=== PATIENT | female | born 1960 | race Caucasian/White ===

== ENCOUNTER 2017-01-16 18:39 | Emergency (ER) | payer BC ==
[~2017-01-16] VITALS: Ht 172.7 cm; Wt 109.0 kg
[~2017-01-16 18:39] MED LIST: CIPR-255 PO; FLNIN NAE; MONT1TAB3 PO; PERP2TAB6 PO; SUMA100T16 PO
[2017-01-16 18:41] VITALS: TEMP 36.8; Ht 172.7 cm; Wt 109.0 kg
[2017-01-16] MEDS ORDERED: KETOROLAC TROMETHAMINE 30 MG/ML VIAL IV STA (18:56)
[2017-01-16] MEDS ORDERED: proair PO (19:05)
[2017-01-16] MEDS ORDERED: OPTIRAY 320 IV PRN (19:15)
[2017-01-16 19:27] LABS: BASO % 0.3 %; BASO ABS # 0.05 K/uL (0-0.2); COMPLETE YES; HEMATOCRIT 40.8 % (37-47); IG% 0.2 %; LYMPH ABS # 2.46 K/uL (1.2-3.4); MEAN CELL VOLUME 89.7 fL (80-100); MEAN CORPUSCULAR HEMOGLOBIN 30.1 pg (25-34); MEAN CORPUSCULAR HGB CONC 33.6 g/dl (32-36); MEAN PLATELET VOLUME 9.6 fL (7.4-10.4); MONO % 5.5 %; PLATELET COUNT 347 K/uL (130-400); RED BLOOD COUNT 4.55 M/uL (4.2-5.4)
[2017-01-16 19:48] LABS: BUN/CREATININE RATIO 24.1 (10-20); CALCIUM 8.8 mg/dl (8.5-10.1); CREATININE 0.82 mg/dl (0.60-1.20); POTASSIUM 3.6 mmol/L (3.5-5.1)
[2017-01-16 19:52] LABS: URINE APPEARANCE CLEAR (CLEAR); URINE BILIRUBIN NEG (NEG); URINE COLOR YELLOW; URINE EPITHELIAL CELL AUTO >30 /lpf (0-5); URINE NITRITE NEG (NEG); URINE PH 8.5 (4.5-7.5); URINE SPECIFIC GRAVITY 1.021 (1.000-1.030); UROBILINOGEN NEG (NEG); ZZUR CULT IF INDIC CLEAN CATCH NO
[2017-01-16 19:55] LABS: MANUAL MICROSCOPIC REQUIRED? NO; REVIEW REQ? NO
--- NOTE | 2017-01-16 20:16 | DIAGNOSTIC IMAGING REPORT ---
CT SCAN OF THE ABDOMEN AND PELVIS WITH IV CONTRAST CLINICAL HISTORY: Suprapubic abdominal pain. COMPARISON STUDY: Abdominal CT dated 04/22/2014. TECHNIQUE: Following the IV administration of 116 cc of Optiray 320, CT scan of the abdomen and pelvis is performed from the lung bases to the proximal femora. Images are reviewed in the axial, sagittal, and coronal planes. IV contrast was administered without complication. The examination is mildly degraded by large body habitus, and by streak artifact from the body wall abutting the CT gantry. Automated dose control exposure was utilized. FINDINGS: Lung bases: The heart is normal in size and without pericardial effusion. Coronary artery calcifications are noted. The lung bases are clear noting dependent atelectasis. Liver: The contrast-enhanced liver is normal in size, contour, and attenuation. There is no intrahepatic biliary ductal dilatation. The hepatic veins and portal veins are patent. Scattered hepatic cysts measure up to 2.8 cm. Gallbladder: Contracted and grossly unremarkable. Spleen: Normal in size and attenuation. Pancreas: Unremarkable. Adrenal glands: Unremarkable. Kidneys: The contrast enhanced kidneys are normal in size and without hydronephrosis. The kidneys enhance symmetrically. A retroaortic left renal vein is incidentally noted. Abdominal vasculature: The abdominal aorta is normal in course and caliber. Stomach and bowel: There is a moderate to large hiatal hernia with approximately half of the stomach located in the thoracic cavity. The duodenum is normal in configuration. The small bowel and colon are normal in course and caliber. There is mild to moderate diverticulosis of left colon without CT evidence of acute diverticulitis. There is moderate fecal retention in the right colon. The appendix is well-visualized and normal. Peritoneum: There is no intraperitoneal free air or abdominal ascites. There is a fat-containing umbilical hernia. Lymphadenopathy: None. Pelvic viscera: The bladder, uterus, and adnexa are normal as visualized. There is a small fat-containing left inguinal hernia. Skeletal structures: No lytic or blastic lesions are seen. Sclerotic change is noted at the pubic symphysis. IMPRESSION: 1. There are no acute infectious or inflammatory findings in the abdomen or pelvis. 2. Moderate to large hiatal hernia. 3. Mild to moderate diverticulosis of the left colon without CT evidence of acute diverticulitis. Electronically signed by: Sky Bean M.D. 01/16/2017 8:14 PM Dictated Date/Time: 01/16/2017 8:07 PM
--- NOTE | 2017-01-16 20:38 | DIAGNOSTIC IMAGING REPORT ---
CT SCAN OF LUMBAR SPINE WITHOUT IV CONTRAST CLINICAL HISTORY: Low back pain. COMPARISON STUDY: Abdominal CT performed concurrently on 01/16/2017. TECHNIQUE: CT scan of lumbar spine is performed from the lower thoracic spine to the sacrum. Images reviewed in the axial, sagittal, and coronal planes. IV contrast was not administered specifically for this examination. There is IV contrast present from the concurrently performed abdominal CT. CT DOSE: 1454.26 mGy.cm. FINDINGS: The skeletal structures are well mineralized. Vertebral body height and alignment are maintained throughout the lumbar spine. No fracture is seen. The transverse and spinous processes are intact. There is no spondylolysis. No lytic or blastic lesions are seen. Tiny anterior osteophytes are seen in the lower lumbar region. The disc spaces are preserved. There is no evidence of large disc herniation. The visualized sacrum and bony pelvis are intact as imaged. The paraspinous soft tissues are within normal limits. Colonic diverticulosis is partially visualized. No retroperitoneal lymphadenopathy is seen. IMPRESSION: No acute bony abnormality is seen involving the lumbosacral spine. Dictated: 01/16/2017 8:19 PM Transcribed: 01/16/2017 8:38 PM Tito Electronically signed by: Sky Bean M.D. 01/16/2017 8:44 PM Dictated Date/Time: 01/16/2017 8:19 PM
[2017-01-16] MEDS ORDERED: IBUP-1427 PO (21:05)
--- NOTE | 2017-01-16 21:06 | EMERGENCY ROOM VISIT NOTE ---
History First contact with patient: 18:45 Chief Complaint: BACK PAIN Stated Complaint: PAIN IN LEGS SOME IN BACK History of Present Illness The patient is a 56 year old female who presents to the Emergency Room with complaints of low back pain. The patient states that she had an appointment with her chiropractor this morning to have "an adjustment." She states that afterwards, she went shopping and felt fine, but later developed pain in her low back. She reports the pain radiates into her lower abdomen in both of her legs. She rates this discomfort a 10/10. The pain is worse with walking. She has not taken any medication for the pain. She denies any nausea, vomiting or urinary symptoms. She denies any incontinence, numbness, tingling, weakness or saddle anesthesias. She denies any history of back problems. She denies any fevers/chills. Review of Systems A complete 10-point Review of Systems was discussed with the patient, with pertinent positives and negatives listed in the History of Present Illness. All remaining Review of Systems questions can be considered negative unless otherwise specified. Past Medical/Surgical History Medical Problems: (1) Asthma Social History Smoking Status: Never Smoker Marital Status: Occupation Status: employed Current/Historical Medications Scheduled Fluticasone Propionate (Flonase Nasal [place] *), 2 SPRAY ANNA DAILY Ibuprofen Tab (Motrin), 1 TAB PO TID Montelukast Sodium (Singulair), 10 MG PO DAILY Perphenazine-Amitriptyline (Perphenazine/Amitriptylin), 1 TAB PO QPM Sumatriptan Succinate (Imitrex), 100 MG PO PRN Scheduled PRN [proair], 1 PUFF PO DAILY PRN for prn Allergies Coded Allergies: Hydromorphone (Verified Allergy, Intermediate, Nausea, vomiting, 01/16/17) Sulfa Drugs (Unverified Allergy, Unknown, HIVES, 01/16/17) Physical Exam Vital Signs Date Time Temp Pulse Resp B/P Pulse Ox O2 Delivery O2 Flow Rate FiO2 01/16/17 21:33 76 18 102/56 98 Room Air 01/16/17 20:25 79 104/56 98 Room Air 01/16/17 18:41 36.8 93 20 132/79 97 Room Air Physical Exam VITALS: Vitals are noted on the nurse's note and reviewed by myself. Vital signs stable. GENERAL: This is a 56-year-old female, in no acute distress, nondiaphoretic, well-developed well-nourished. SKIN: Capillary reflex less than 2 seconds. HEENT: Normocephalic. PERRLA. EOMI. Nares patent. Mucous membranes moist. Neck is supple without nuchal rigidity. HEART: Regular rate and rhythm without murmurs gallops or rubs. LUNGS: Clear to auscultation bilaterally without wheezes, rales or rhonchi. ABDOMEN: Positive bowel sounds x 4. Soft, with mild tenderness of the left lower quadrant. No guarding or rebound tenderness. MUSCULOSKELETAL: Vague tenderness over the lumbar region without tenderness over the lumbar spinous processes. NEURO: Patient was alert and oriented to person place and time. Normal sensation to light and sharp touch. Deep tendon reflexes 2+ throughout. No focal neurological deficits. Medical Decision & Procedures ER Provider Diagnostic Interpretation: CT SCAN OF THE ABDOMEN AND PELVIS WITH IV CONTRAST IMPRESSION: 1. There are no acute infectious or inflammatory findings in the abdomen or pelvis. 2. Moderate to large hiatal hernia. 3. Mild to moderate diverticulosis of the left colon without CT evidence of acute diverticulitis. CT SCAN OF LUMBAR SPINE WITHOUT IV CONTRAST IMPRESSION: No acute bony abnormality is seen involving the lumbosacral spine. Laboratory Results 01/16/17 19:18 Red Blood Count 4.55, Mean Corpuscular Volume 89.7, Mean Corpuscular Hemoglobin 30.1, Mean Corpuscular Hemoglobin Concent 33.6, Mean Platelet Volume 9.6, Neutrophils (%) (Auto) 73.0, Lymphocytes (%) (Auto) 17.0, Monocytes (%) (Auto) 5.5, Eosinophils (%) (Auto) 4.0, Basophils (%) (Auto) 0.3, Neutrophils # (Auto) 10.58, Lymphocytes # (Auto) 2.46, Monocytes # (Auto) 0.80, Eosinophils # (Auto) 0.58, Basophils # (Auto) 0.05 01/16/17 19:18 Test 01/16/17 19:18 01/16/17 19:27 White Blood Count 14.50 K/uL (4.8-10.8) Red Blood Count 4.55 M/uL (4.2-5.4) Hemoglobin 13.7 g/dL (12.0-16.0) Hematocrit 40.8 % (37-47) Mean Corpuscular Volume 89.7 fL (80-100) Mean Corpuscular Hemoglobin 30.1 pg (25-34) Mean Corpuscular Hemoglobin Concent 33.6 g/dl (32-36) Platelet Count 347 K/uL (130-400) Mean Platelet Volume 9.6 fL (7.4-10.4) Neutrophils (%) (Auto) 73.0 % Lymphocytes (%) (Auto) 17.0 % Monocytes (%) (Auto) 5.5 % Eosinophils (%) (Auto) 4.0 % Basophils (%) (Auto) 0.3 % Neutrophils # (Auto) 10.58 K/uL (1.4-6.5) Lymphocytes # (Auto) 2.46 K/uL (1.2-3.4) Monocytes # (Auto) 0.80 K/uL (0.11-0.59) Eosinophils # (Auto) 0.58 K/uL (0-0.5) Basophils # (Auto) 0.05 K/uL (0-0.2) RDW Standard Deviation 45.3 fL (36.4-46.3) RDW Coefficient of Variation 13.8 % (11.5-14.5) Immature Granulocyte % (Auto) 0.2 % Immature Granulocyte # (Auto) 0.03 K/uL (0.00-0.02) Anion Gap 11.0 mmol/L (3-11) Est Creatinine Clear Calc Drug Dose 99.1 ml/min Estimated GFR () 92.7 Estimated GFR (Non- 80.0 BUN/Creatinine Ratio 24.1 (10-20) Calcium Level 8.8 mg/dl (8.5-10.1) Total Bilirubin 0.3 mg/dl (0.2-1) Aspartate Amino Transf (AST/SGOT) 15 U/L (15-37) Alanine Aminotransferase (ALT/SGPT) 23 U/L (12-78) Alkaline Phosphatase 116 U/L (45-117) Total Protein 7.4 gm/dl (6.4-8.2) Albumin 3.7 gm/dl (3.4-5.0) Globulin 3.7 gm/dl (2.5-4.0) Albumin/Globulin Ratio 1.0 (0.9-2) Urine Color YELLOW Urine Appearance CLEAR (CLEAR) Urine pH 8.5 (4.5-7.5) Urine Specific [place] 1.021 (1.000-1.030) Urine Protein NEG (NEG) Urine Glucose (UA) NEG (NEG) Urine Ketones NEG (NEG) Urine Occult Blood 1+ (NEG) Urine Nitrite NEG (NEG) Urine Bilirubin NEG (NEG) Urine Urobilinogen NEG (NEG) Urine Leukocyte Esterase TRACE (NEG) Urine WBC (Auto) 1-5 /hpf (0-5) Urine RBC (Auto) 10-30 /hpf (0-4) Urine Hyaline Casts (Auto) 0 /lpf (0-5) Urine Epithelial Cells (Auto) >30 /lpf (0-5) Urine Bacteria (Auto) NEG (NEG) Medications Administered Medications (Trade) Dose Ordered Sig/Ruthie Route Start Time Stop Time Status Last Admin Dose Admin Ketorolac Tromethamine (Toradol Inj) 30 mg NOW STAT IV 01/16/17 18:56 01/16/17 19:09 DC 01/16/17 19:25 30 MG Medical Decision Differential diagnosis includes epidural abscess, lumbar disc disease, malignancy, musculoskeletal strain, diverticulitis, renal calculus, colitis, gastroenteritis, among others. The patient was evaluated as above. Labs were drawn and IV access was obtained. Imaging studies were performed and read by radiology as above. The patient was medicated with 30 g Toradol IV. The patient was reassessed multiple times during their stay in the emergency department and remained in stable condition. The patient is a 56-year-old female who presents today complaining of low back pain. The patient does report some radiation into the abdomen has mild tenderness in the left lower abdomen. Labs revealed a mild leukocytosis of unclear significance. Urinalysis was not suggestive of infection. CT of the lumbar spine was unremarkable. CT of the abdomen and pelvis was unremarkable. The patient was instructed to follow-up with her primary care provider. She did feel better after IV Toradol and will be treated with ibuprofen. She will return for worsening or new/concerning symptoms. Based on the patient's presentation, lab results, and imaging studies, I feel the patient is stable for outpatient treatment. Discharge instructions were reviewed with the patient. The patient verbalized understanding of my assessment and treatment plan and was discharged home in good condition. Impression Primary Impression: Low back pain Departure Information Dispostion Home / Self-Care Condition GOOD Prescriptions Ibuprofen Tab (MOTRIN) 600 Mg Tab 1 TAB PO TID for 10 Days, #30 TAB Prov: Iliana Herbert PA-C 01/16/17 Referrals Alesha Sterling M.D. (PCP) Patient Instructions My [facility] Additional Instructions You have been treated in the Emergency Department for Back Pain. Ibuprofen as prescribed. For pain control, you can use the following [id number] medicines (if >12 yo): - Regular strength (325mg/tab) Tylenol (acetaminophen) 2 tabs every 4-6 hours as needed. Do not exceed 12 tablets in a 24 hour period. Avoid taking more than 4 grams (4000 mg) of Tylenol per day. This includes any other sources of acetaminophen you may take on a regular basis. If this is an acute injury, ice can be applied to the area of pain for the first 3 days to help decrease pain and inflammation. After the first 3 days, a heating pad can be used over the area for continued soothing relief. You should schedule a follow-up appointment in 2-3 days with your Primary Care Provider for further evaluation and treatment of your back pain. Return to the Emergency Department if your current symptoms worsen despite treatment course outlined above, or if you develop any of the following symptoms : intractable pain despite aforementioned treatment course, loss of control of your bowel or bladder, numbness or tingling in your groin, or development of a fever. Problem Qualifiers Primary Impression: Low back pain Chronicity: acute Back pain laterality: unspecified Sciatica presence: without sciatica Qualified Codes: M54.5 - Low back pain
[2017-01-16 21:33] VITALS: BP 102/56; PULSE 76; O2SAT 98
== END 2017-01-16 21:34 | disposition home or self-care (01) ==
LOC: C.EDB 18:40
DX: M54.5 Low back pain (principal); J45.909 Unspecified asthma, uncomplicated; Z79.899 Other long term (current) drug therapy

== ENCOUNTER 2017-04-23 15:27 | Emergency (ER) | payer BC ==
[~2017-04-23] VITALS: Ht 172.7 cm; Wt 105.4 kg
[~2017-04-23 15:27] MED LIST changes: -CIPR-255 PO; +proair PO
[2017-04-23 15:34] VITALS: Ht 172.7 cm; Wt 105.4 kg
[2017-04-23] MEDS ORDERED: ACETAMINOPHEN 325 MG TAB PO STA (15:42)
[2017-04-23] MEDS ORDERED: SODIUM CHLORIDE 0.9% 1000ML 1,000 ML IV STA ×3 (15:46→18:01)
--- NOTE | 2017-04-23 15:46 | EMERGENCY ROOM VISIT NOTE ---
History First contact with patient: 15:42 Chief Complaint: REFERRED BY DOCTOR Stated Complaint: HEADACHE, SWEATING, COLD,PAIN, FEVER History of Present Illness The patient is a 56 year old female who presents to the Emergency Room with complaints of fever, chills, headache, diarrhea and nausea. Her symptoms started on Monday with diarrhea and fever initially and then shortly afterwards had headache. Headache is aching all over her head without light sensitivity, severity 10/10, progressively getting worse since Monday. She only had one episode of loose stool on Monday and no bowel movements since then, no melena or GI bleeding. Subjective fevers and chills, temp in ER 39.3 degrees celsius. Her headache has been getting progressively worse and is currently a 10/10 pain bilaterally all over her head. She has all over body aches. No known tick bites or exposure. She has decreased urinary frequency. She denies any cough, chest pain, shortness of breath, dysuria, change in urine smell, light sensitivity or neck pain. Review of Systems See HPI for pertinent positives & negatives. A total of 10 systems reviewed and were otherwise negative. Past Medical/Surgical History Medical Problems: (1) Asthma (2) Migraine Social History Smoking Status: Never Smoker Smokeless Tobacco Use: No Alcohol Use: occasionally (weekends) Drug Use: none Marital Status: Housing Status: lives with family Occupation Status: employed Current/Historical Medications Scheduled Ciprofloxacin (Ciprofloxacin HCl), 1 MG PO BID Fluticasone Prop/Salmeterol (Advair Diskus 250/50 60 Dose), 1 PUFF INH BID Fluticasone Propionate (Nasal) (Flonase Allergy Relief), 2 SPRAYS ANNA DAILY Montelukast Sodium (Singulair), 10 MG PO DAILY Perphenazine-Amitriptyline (Perphenazine/Amitriptylin), 1 TAB PO QPM Sumatriptan Succinate (Imitrex), 100 MG PO PRN Trazodone Hcl (Trazodone), 1 TAB PO QPM Scheduled PRN Albuterol Sulfate (Proair Respiclick), 1 PUFF INH DAILY PRN for SOB/Wheezing Ondansetron Hcl (Zofran), 4 MG PO QID PRN for Nausea Oxycodone Hcl (Oxycodone Hcl), 1 CAP PO QID PRN for Pain Allergies Coded Allergies: Hydromorphone (Verified Allergy, Intermediate, Nausea, vomiting, 01/16/17) Sulfa Drugs (Unverified Allergy, Unknown, HIVES, 01/16/17) Physical Exam Vital Signs Date Time Temp Pulse Resp B/P (MAP) Pulse Ox O2 Delivery O2 Flow Rate FiO2 04/23/17 20:13 81 04/23/17 19:17 89 17 120/69 94 Room Air 04/23/17 17:37 97 23 93 04/23/17 17:32 96 22 129/73 93 04/23/17 17:27 97 16 91 04/23/17 17:22 99 15 93 04/23/17 17:17 103 18 93 04/23/17 17:12 91 27 91 04/23/17 17:07 93 28 91 04/23/17 17:02 96 27 109/51 91 04/23/17 16:58 102 04/23/17 16:57 100 26 91 04/23/17 16:32 136/73 04/23/17 16:12 93 Room Air 04/23/17 15:34 39.3 120 20 109/64 97 Room Air Physical Exam VITAL SIGNS: were reviewed as above GENERAL: mild acute distress from pain, obese SKIN: Warm dry and pink, no rashes HEAD: Normocephalic and atraumatic EYES: Extraocular muscles intact, pupils equal and reactive to light OROPHARYNX: non erythematous, clear but dry NECK: Supple, no adenopathy or meningismus LUNGS: Clear to auscultation, no respiratory distress, no accessory muscle use HEART: Increased rate but regular rhythm, heart sounds 1+2, no murmurs ABDOMEN: Soft and nontender, bowel sounds normal BACK: B/l mild CVA tenderness (although has generalized tenderness everywhere). EXTREMITIES: Warm and well perfused, no calf tenderness/swelling, no pedal edema. NEUROLOGICALLY: Awake alert and oriented. Cranial nerves 2-12 intact. Cerebellar testing is within normal limits. There is no nystagmus. There is no facial droop. Speech is clear. Vision is grossly normal. Upper and lower limb motor and sensory examination normal. MUSCULOSKELETAL: Good muscle tone. No evidence of trauma. Medical Decision & Procedures ER Provider Diagnostic Interpretation: CHEST ONE VIEW PORTABLE CLINICAL HISTORY: SIRS SYSTEMIC INFLAMMATORY RESPONSE SYNDROME COMPARISON STUDY: 10/05/2016 FINDINGS: The cardiac and mediastinal contours are normal. There is no evidence of focal pulmonary consolidation. There is no evidence of failure. No pleural effusions are visualized.[ There is minor right infrahilar subsegmental atelectasis. IMPRESSION: No active disease in the chest. Electronically signed by: Prudencio Orozco M.D. 04/23/2017 4:03 PM Dictated Date/Time: 04/23/2017 4:02 PM Laboratory Results 04/23/17 15:50 Red Blood Count 5.36, Mean Corpuscular Volume 88.2, Mean Corpuscular Hemoglobin 30.4, Mean Corpuscular Hemoglobin Concent 34.5, Mean Platelet Volume 9.6, Neutrophils (%) (Auto) 93.1, Lymphocytes (%) (Auto) 4.1, Monocytes (%) (Auto) 2.6, Eosinophils (%) (Auto) 0.0, Basophils (%) (Auto) 0.1, Neutrophils # (Auto) 8.47, Lymphocytes # (Auto) 0.37, Monocytes # (Auto) 0.24, Eosinophils # (Auto) 0.00, Basophils # (Auto) 0.01 04/23/17 15:50 Test 04/23/17 15:50 04/23/17 15:58 04/23/17 16:10 White Blood Count 9.10 K/uL (4.8-10.8) Red Blood Count 5.36 M/uL (4.2-5.4) Hemoglobin 16.3 g/dL (12.0-16.0) Hematocrit 47.3 % (37-47) Mean Corpuscular Volume 88.2 fL (80-100) Mean Corpuscular Hemoglobin 30.4 pg (25-34) Mean Corpuscular Hemoglobin Concent 34.5 g/dl (32-36) Platelet Count 163 K/uL (130-400) Mean Platelet Volume 9.6 fL (7.4-10.4) Neutrophils (%) (Auto) 93.1 % Lymphocytes (%) (Auto) 4.1 % Monocytes (%) (Auto) 2.6 % Eosinophils (%) (Auto) 0.0 % Basophils (%) (Auto) 0.1 % Neutrophils # (Auto) 8.47 K/uL (1.4-6.5) Lymphocytes # (Auto) 0.37 K/uL (1.2-3.4) Monocytes # (Auto) 0.24 K/uL (0.11-0.59) Eosinophils # (Auto) 0.00 K/uL (0-0.5) Basophils # (Auto) 0.01 K/uL (0-0.2) RDW Standard Deviation 44.5 fL (36.4-46.3) RDW Coefficient of Variation 13.7 % (11.5-14.5) Immature Granulocyte % (Auto) 0.1 % Immature Granulocyte # (Auto) 0.01 K/uL (0.00-0.02) Prothrombin Time 11.2 SECONDS (9.0-12.0) Prothromb Time International Ratio 1.0 (0.9-1.1) Activated Partial Thromboplast Time 29.9 SECONDS (21.0-31.0) Partial Thromboplastin Ratio 1.2 Anion Gap 8.0 mmol/L (3-11) Est Creatinine Clear Calc Drug Dose 72.6 ml/min Estimated GFR () 65.0 Estimated GFR (Non- 56.1 BUN/Creatinine Ratio 18.1 (10-20) Calcium Level 9.1 mg/dl (8.5-10.1) Magnesium Level 2.5 mg/dl (1.8-2.4) Total Bilirubin 0.5 mg/dl (0.2-1) Aspartate Amino Transf (AST/SGOT) 39 U/L (15-37) Alanine Aminotransferase (ALT/SGPT) 33 U/L (12-78) Alkaline Phosphatase 184 U/L (45-117) Total Protein 8.2 gm/dl (6.4-8.2) Albumin 3.6 gm/dl (3.4-5.0) Globulin 4.6 gm/dl (2.5-4.0) Albumin/Globulin Ratio 0.8 (0.9-2) Lyme Disease IgG Antibody NEG (NEG) Lyme Disease IgM Antibody NEG (NEG) Bedside Lactic Acid Venous 2.15 mmol/L (0.90-1.70) Urine Color DK YELLOW Urine Appearance CLOUDY (CLEAR) Urine pH 5.5 (4.5-7.5) Urine Specific [place] 1.034 (1.000-1.030) Urine Protein 2+ (NEG) Urine Glucose (UA) NEG (NEG) Urine Ketones TRACE (NEG) Urine Occult Blood 3+ (NEG) Urine Nitrite NEG (NEG) Urine Bilirubin NEG (NEG) Urine Urobilinogen NEG (NEG) Urine Leukocyte Esterase TRACE (NEG) Urine WBC (Auto) 10-30 /hpf (0-5) Urine RBC (Auto) 10-30 /hpf (0-4) Urine Hyaline Casts (Auto) 10-30 /lpf (0-5) Urine Epithelial Cells (Auto) >30 /lpf (0-5) Urine Bacteria (Auto) 2+ (NEG) Urine Crystals CALCIUM OXALATE (NONE Medications Administered Medications (Trade) Dose Ordered Sig/Ruthie Route Start Time Stop Time Status Last Admin Dose Admin Acetaminophen (Tylenol Tab) 650 mg NOW STAT PO 04/23/17 15:42 04/23/17 15:46 DC 04/23/17 16:15 650 MG Sodium Chloride 1,000 ml @ 999 mls/hr Q1H1M STAT IV 04/23/17 15:46 04/23/17 16:46 DC 04/23/17 16:15 999 MLS/HR Sodium Chloride 1,000 ml @ 999 mls/hr Q1H1M STAT IV 04/23/17 17:09 04/23/17 18:09 DC 04/23/17 17:39 999 MLS/HR Promethazine HCl 12.5 mg/Sodium Chloride 50.5 ml @ 204 mls/hr NOW STAT IV 04/23/17 17:18 04/23/17 17:32 DC 04/23/17 17:39 204 MLS/HR Ceftriaxone Sodium (Rocephin Inj) 1 gm NOW STAT IV 04/23/17 17:49 04/23/17 17:50 DC 04/23/17 18:32 1 GM Morphine Sulfate (MoRPHine SULFATE INJ) 4 mg NOW STAT IV 04/23/17 17:58 04/23/17 17:59 DC 04/23/17 18:32 4 MG Sodium Chloride 1,000 ml @ 999 mls/hr Q1H1M STAT IV 04/23/17 18:01 04/23/17 19:01 DC 04/23/17 19:20 999 MLS/HR Ketorolac Tromethamine (Toradol Inj) 30 mg NOW STAT IV 04/23/17 19:58 04/23/17 19:59 DC 04/23/17 20:09 30 MG Morphine Sulfate (MoRPHine SULFATE INJ) 4 mg NOW STAT IV 04/23/17 19:58 04/23/17 20:00 DC 04/23/17 20:08 4 MG ECG Indication: tachycardia Rate (beats per minute): 108 Rhythm: sinus tachycardia Findings: no acute ischemic change, other (left axis dysfunction) ED Course 15:43 - Complete history and physical performed, sepsis protocol started although given only source appears to be GI on H&P antibiotics were deferred, acetaminophen prescribed for fever and IV fluids bolus given 16:05 - Discussed with Dr Bearden who separately performed history and examination and agreed with above management 17:10 - Reassessed patient still having 10/10 headache, additional NSS ordered and Phenergan 17:50 - Patient reassessed; Ceftriaxone 1g IV prescribed given UTI positive for blood (RBC), WBC, Protein and bacteria (possible contaminated sample given epithelial cells >30). Lyme added as patient remembered she had been at a friends house 1 week previously and they live in the [facility]. Morphine 4mg IV prescribed for ongoing headache despite rehydration. Additional 1L NSS bolus prescribed. 19:55 Reassessed patient having 8/10 headache. Morphine 4mg IV and Toradol 30mg IV prescribed for pain. 21:00 Reassessed patient. Discussed possibility of viral meningitis given headache and fever but decided against lumbar puncture at this stage given Hx of chronic headaches and previous post LP headache with unlikely change in management from headache. Will treat as a UTI with ciprofloxacin and advised to return in 24 hours if symptoms persist despite regular acetaminophen and ibuprofen. Medical Decision Prior records/ancillary studies reviewed. Triage Nursing notes reviewed. Additional history obtained from patient. The patient's history was concerning for fever. Differential diagnosis: Etiologies such as viral syndrome, otitis, pharyngitis, pneumonia, influenza, meningitis, urinary tract infection, sepsis, bacteremia, as well as others were entertained. Physical examination: revealed generalized muscle aches but was otherwise unremarkable ER treatment provided: Acetaminophen 650 mg PO Morphine 4mg IV x2 Phenergan 12.5mg IV NSS x3L Ceftriaxone 1g IV On reassessment her headache had improved but was still present. Imaging: ECG: as above The labs showed mildly elevated Hgb, ALP and AST. WBC was normal. Imaging studies: CXR was unremarkable This appears to be consistent with UTI/gastroenteritis however viral meningitis was not ruled out. Bacterial meningitis is relatively unlikely given normal WBC , no neck stiffness or rash. By the evaluation outlined above emergent etiologies such as otitis, pharyngitis, pneumonia, sepsis, bacteremia, as well as others were deemed relatively unlikely. The patient was informed about the findings as listed above. All questions were answered and she was pleased with the treatment plan. Return instructions were outlined and the patient was discharged in stable condition. Outpatient prescription management: Ondansetron 4mg PO Q6H Oxycodone 5mg PO Q6H 20 tabs Ciprofloxacin 500mg PO BID 7 days Referral: The patient was referred back to their primary care physician for follow-up in 2 to 3 days for a recheck of the current condition. She was advised to return to the ER in 24 hours if her symptoms persist [place] Drug Monitoring Program Search Results: patient reviewed within database, no issues identified Impression Primary Impression: UTI (urinary tract infection) Additional Impression: Fever Departure Information Dispostion Home / Self-Care Condition FAIR Prescriptions Ciprofloxacin (Ciprofloxacin HCl) 500 Mg Tab 1 MG PO BID for 7 Days, #14 TAB Prov: Rodney Falcon MD 04/23/17 Ondansetron Hcl (ZOFRAN) 4 Mg Tab 4 MG PO QID Y for Nausea, #10 TAB Prov: Rodney Falcon MD 04/23/17 Oxycodone Hcl (OXYCODONE HCL) 5 Mg Cap 1 CAP PO QID Y for Pain for 5 Days, #20 CAP Prov: Rodney Falcon MD 04/23/17 Referrals Alesha Sterling M.D. (PCP) Patient Instructions [facility] Additional Instructions You were evaluated in the ER for fever, headache and generalized muscle aches. Labs were unremarkable with slightly elevated liver enzymes (ALP and AST). Urine analysis suggested urine tract infection and you were treated with IV antibiotic (ceftriaxone) for this. Please continue with the full course of antibiotics prescribed for treatment of the urine tract infection. Urine and blood cultures were sent and you should follow up with your PCP regarding this in 2-3 days. If positive the result will be communicated directly to yourself from the ER. The possibility of viral meningitis was discussed and we opted to watch and wait regarding lumbar puncture given previous side effect of post spinal headache and it is unlikely to change treatment. If continuing high fever and headache despite regular acetaminophen (650mg every 6 hours) and ibuprofen ( 600mg every 6 hours) however, please return to the ER in 24 hours. You were also prescribed oxycodone for pain. You should not drive while taking this medication. Resident Tracking Resident Involvement: Resident Care Provided Care Provided: Adult ED Problem Qualifiers Primary Impression: UTI (urinary tract infection) Urinary tract infection type: site unspecified Hematuria presence: with hematuria Qualified Codes: N39.0 - Urinary tract infection, site not specified ; R31.9 - Hematuria, unspecified Additional Impression: Fever Fever type: unspecified Qualified Codes: R50.9 - Fever, unspecified
[2017-04-23 16:05] LABS: BASO % 0.1 %; BASO ABS # 0.01 K/uL (0-0.2); COMPLETE YES; HEMATOCRIT 47.3 % (37-47); IG% 0.1 %; LYMPH % 4.1 %; LYMPH ABS # 0.37 K/uL (1.2-3.4); MEAN CELL VOLUME 88.2 fL (80-100); MEAN CORPUSCULAR HEMOGLOBIN 30.4 pg (25-34); MEAN CORPUSCULAR HGB CONC 34.5 g/dl (32-36); MEAN PLATELET VOLUME 9.6 fL (7.4-10.4); MONO % 2.6 %; NEUT % 93.1 %; PLATELET COUNT 163 K/uL (130-400); RED BLOOD COUNT 5.36 M/uL (4.2-5.4)
--- NOTE | 2017-04-23 16:05 | DIAGNOSTIC IMAGING REPORT ---
CHEST ONE VIEW PORTABLE CLINICAL HISTORY: SIRS SYSTEMIC INFLAMMATORY RESPONSE SYNDROME COMPARISON STUDY: 10/05/2016 FINDINGS: The cardiac and mediastinal contours are normal. There is no evidence of focal pulmonary consolidation. There is no evidence of failure. No pleural effusions are visualized.[ There is minor right infrahilar subsegmental atelectasis. IMPRESSION: No active disease in the chest. Electronically signed by: Prudencio Orozco M.D. 04/23/2017 4:03 PM Dictated Date/Time: 04/23/2017 4:02 PM
[2017-04-23 16:12] VITALS: O2SAT 93
[2017-04-23] MEDS ORDERED: TRAZ50TA35 PO (16:15)
[2017-04-23] MEDS ORDERED: ADVIN25/60 INH (16:15)
[2017-04-23 16:18] LABS: PARTIAL THROMBOPLASTIN RATIO 1.2; PROTHROMBIN TIME (PATIENT) 11.2 SECONDS (9.0-12.0)
[2017-04-23 16:24] LABS: BUN/CREATININE RATIO 18.1 (10-20); CALCIUM 9.1 mg/dl (8.5-10.1); CREATININE 1.1 mg/dl (0.60-1.20); MAGNESIUM 2.5 mg/dl (1.8-2.4); POTASSIUM 3.5 mmol/L (3.5-5.1)
[2017-04-23 16:26] LABS: ALB/GLOB RATIO 0.8 (0.9-2)
[2017-04-23 16:29] LABS: URINE APPEARANCE CLOUDY (CLEAR); URINE COLOR DK YELLOW; URINE EPITHELIAL CELL AUTO >30 /lpf (0-5); URINE NITRITE NEG (NEG); URINE PH 5.5 (4.5-7.5); URINE SPECIFIC GRAVITY 1.034 (1.000-1.030); UROBILINOGEN NEG (NEG); ZZUR CULT IF INDIC CLEAN CATCH YES
--- NOTE | 2017-04-23 16:38 | EMERGENCY ROOM VISIT NOTE ---
ED Visit Note First contact with patient: 15:40 Resident Physician Supervision Note: I was present with Dr. Falcon during the history and exam. I discussed the case with the resident and agree with the findings and plan as documented in the note. Documented By: Anibal Bearden
[2017-04-23 16:46] LABS: MANUAL MICROSCOPIC REQUIRED? NO; REVIEW REQ? YES; URINE BILIRUBIN NEG (NEG)
[2017-04-23] MEDS ORDERED: PROMETHAZINE HCL INJ 12.5 MG in SODIUM CHLORIDE 0.9% 50ML 50 ML IV STA (17:18)
[2017-04-23] MEDS ORDERED: FLUT0.15 NAE (17:24)
[2017-04-23] MEDS ORDERED: ALBU18002 INH (17:24)
[2017-04-23] MEDS ORDERED: PROMETHAZINE HCL INJ 25 MG/ML 1 ML VIAL ONE (17:30)
[2017-04-23] MEDS ORDERED: CEFTRIAXONE SOD INJ 1 GM ADDVIAL IV STA (17:49)
[2017-04-23] MEDS ORDERED: MoRPHine SULFATE 4 MG/ML 1 ML CARP\\VIAL IV STA ×2 (17:58→19:58)
[2017-04-23 18:51] LABS: LYME DISEASE AB IGG NEG (NEG); LYME DISEASE AB IGM NEG (NEG)
[2017-04-23] MEDS ORDERED: KETOROLAC TROMETHAMINE 30 MG/ML VIAL IV STA (19:58)
[2017-04-23] MEDS ORDERED: OXYC1CAP5 PO (21:23)
[2017-04-23] MEDS ORDERED: ONDA4TAB46 PO (21:23)
[2017-04-23 21:30] VITALS: BP 123/62; PULSE 80; TEMP 37; O2SAT 95
[2017-04-23] MEDS ORDERED: OXYCODONE IR HOME PACK PO ONE (21:30)
[2017-04-23] MEDS ORDERED: ONDANSETRON HOME PACK 4MG OD TAB PO ONE (21:30)
[2017-04-23] MEDS ORDERED: CIPR1TAB11 PO (21:36)
[2017-04-23] MEDS ORDERED: CPR/500 PO (21:36)
[2017-04-24] MEDS ORDERED: OXYC1TAB3 PO (16:31)
[2017-04-24] MEDS ORDERED: DOXY100T17 PO (16:31)
== END 2017-04-23 21:50 | disposition home or self-care (01) ==
LOC: C.EDB 15:28 → C.EDC 21:50
DX: N39.0 Urinary tract infection, site not specified (principal); R50.9 Fever, unspecified; J45.909 Unspecified asthma, uncomplicated

== ENCOUNTER 2017-04-24 14:06 | Emergency (ER) | payer BC ==
[~2017-04-24] VITALS: Ht 172.7 cm; Wt 105.5 kg
[~2017-04-24 14:06] MED LIST changes: +ADVIN25/60 INH; +ALBU18002 INH; +CPR/500 PO; -FLNIN NAE; +FLUT0.15 NAE; +ONDA4TAB46 PO; +OXYC1CAP5 PO; +TRAZ50TA35 PO; -proair PO
[2017-04-24 14:09] VITALS: TEMP 36.7; Ht 172.7 cm; Wt 105.5 kg
[2017-04-24] MEDS ORDERED: SODIUM CHLORIDE 0.9% 1000ML 1,000 ML IV STA ×2 (14:25→17:58)
[2017-04-24] MEDS ORDERED: PROMETHAZINE HCL INJ 25 MG in SODIUM CHLORIDE 0.9% 50ML 50 ML IV STA (14:25)
[2017-04-24] MEDS ORDERED: MoRPHine SULFATE 4 MG/ML 1 ML CARP\\VIAL IV PRN (14:30)
--- NOTE | 2017-04-24 14:34 | EMERGENCY ROOM VISIT NOTE ---
History Report prepared by Josselin: Enrique Love Under the Supervision of: Dr. Anibal Bearden D.O. First contact with patient: 14:13 Chief Complaint: FEVER Stated Complaint: FEVER, DEHYDRATION, HEADACHE History of Present Illness The patient is a 56 year old female who presents to the Emergency Room with complaints of a persistent headache beginning three days ago. She also complains of intermittent nausea, decreased urinary frequency, and weakness. She was seen in the ED yesterday for similar symptoms. The patient states that her symptoms began with diarrhea, followed by a headache, sweating and fatigue. She notes that she vomited once. She feels that she may have a fever. The patient denies any back pain, rash or cough. She states that she has "a little bit" of abdominal pain as well. She denies any recent travel. The patient took oxycodone and ibuprofen for her headache today, but has seen no relief. 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 Source of History: patient Onset: Three days ago Position: head Timing: other (persistent) Associated Symptoms: + diaphoresis, + nausea, + vomiting (one episode), + abdominal pain ("a little"), + diarrhea, + urinary symptoms (decreased frequency ), + fatigue, + weakness, No cough, No back pain, No rash Review of Systems See HPI for pertinent positives & negatives. A total of 10 systems reviewed and were otherwise negative. Past Medical & Surgical Medical Problems: (1) Asthma (2) Migraine Family History No pertinent family history stated. Social History Smoking Status: Never Smoker Alcohol Use: occasionally Drug Use: none Marital Status: Housing Status: lives with family Occupation Status: employed Current/Historical Medications Scheduled Ciprofloxacin (Ciprofloxacin HCl), 1 MG PO BID Doxycycline (Monohydrate) (Doxycycline Monohydrate), 100 MG PO BID Fluticasone Prop/Salmeterol (Advair Diskus 250/50 60 Dose), 1 PUFF INH BID Fluticasone Propionate (Nasal) (Flonase Allergy Relief), 2 SPRAYS ANNA DAILY Montelukast Sodium (Singulair), 10 MG PO DAILY Perphenazine-Amitriptyline (Perphenazine/Amitriptylin), 1 TAB PO QPM Sumatriptan Succinate (Imitrex), 100 MG PO PRN Trazodone Hcl (Trazodone), 50 MG PO QPM Scheduled PRN Albuterol Sulfate (Proair Respiclick), 1 PUFF INH DAILY PRN for SOB/Wheezing Ondansetron Hcl (Zofran), 4 MG PO QID PRN for Nausea Oxycodone Hcl (Oxycodone Hcl), 1 CAP PO QID PRN for Pain Oxycodone Immediate Rel Tab (Roxicodone Ir), 1-2 TAB PO Q4H PRN for Severe Pain Allergies Coded Allergies: Hydromorphone (Verified Allergy, Intermediate, Nausea, vomiting, 01/16/17) Sulfa Drugs (Unverified Allergy, Unknown, HIVES, 01/16/17) Physical Exam Vital Signs Date Time Temp Pulse Resp B/P (MAP) Pulse Ox O2 Delivery O2 Flow Rate FiO2 04/24/17 14:09 36.7 94 18 92/62 94 Room Air Physical Exam GENERAL: Patient is awake, alert, mildly anxious appearing and uncomfortable. Patient is resting comfortably and showing no signs of anxiety EYES: The conjunctivae are clear. The pupils are round and reactive. EARS, NOSE, MOUTH AND THROAT: The nose is without any evidence of any deformity. Mucous membranes are dry tongue is midline NECK: The neck is nontender and supple. RESPIRATORY: Normal respiratory effort is noted there is no evidence of wheezing rhonchi or rales CARDIOVASCULAR: Regular rate and rhythm noted there no murmurs rubs or gallops normal S1 normal S2 GASTROINTESTINAL: The abdomen is soft. Bowel sounds are present in all quadrants. Abdomen is nontender MUSCULOSKELETAL/EXTREMITIES: There is no evidence of gross deformity full range of motion is noted in the hips and shoulders SKIN: There is no obvious evidence of any rash. There are no petechiae, pallor or cyanosis noted. NEUROLOGIC: Patient is awake alert and oriented x3 strength is symmetric patellar reflexes are 2+ bilaterally Medical Decision & Procedures ER Provider Diagnostic Interpretation: Radiology results as stated below per my review and radiologist interpretation: CT HEAD WITHOUT CONTRAST (CT) FINDINGS: No intra or extra-axial mass lesions are visualized. There is no CT evidence of acute cortical infarction. There is no evidence of midline shift. There is no acute hemorrhage. No calvarial fractures are visualized. There is no evidence of pathologic ventricular dilatation. There is no evidence of acute sinusitis IMPRESSION: Normal noncontrast head CT for age Electronically signed by: Prudencio Orozco M.D. CHEST ONE VIEW PORTABLE FINDINGS: Small linear densities within the left lung base favor subsegmental atelectasis. The right lung remains clear. No pleural effusions. No pneumothorax. The heart is normal in size. IMPRESSION: A few small linear densities at the left lung base favor subsegmental atelectasis. Otherwise, no acute process within the chest. Electronically signed by: Yg Arguello M.D. Laboratory Results 04/24/17 15:30 Red Blood Count 4.39, Mean Corpuscular Volume 87.2, Mean Corpuscular Hemoglobin 28.7, Mean Corpuscular Hemoglobin Concent 32.9, Mean Platelet Volume 9.8, Neutrophils (%) (Auto) 81.5, Lymphocytes (%) (Auto) 12.0, Monocytes (%) (Auto) 5.4, Eosinophils (%) (Auto) 0.0, Basophils (%) (Auto) 0.8, Neutrophils # (Auto) 3.19, Lymphocytes # (Auto) 0.47, Monocytes # (Auto) 0.21, Eosinophils # (Auto) 0.00, Basophils # (Auto) 0.03 04/24/17 14:50 Test 04/24/17 14:50 04/24/17 14:51 04/24/17 15:30 Anion Gap 8.0 mmol/L (3-11) Est Creatinine Clear Calc Drug Dose 115.7 ml/min Estimated GFR () 112.8 Estimated GFR (Non- 97.3 BUN/Creatinine Ratio 18.4 (10-20) Calcium Level 8.3 mg/dl (8.5-10.1) Total Bilirubin 0.7 mg/dl (0.2-1) Direct Bilirubin 0.3 mg/dl (0-0.2) Aspartate Amino Transf (AST/SGOT) 38 U/L (15-37) Alanine Aminotransferase (ALT/SGPT) 28 U/L (12-78) Alkaline Phosphatase 177 U/L (45-117) Total Protein 6.4 gm/dl (6.4-8.2) Albumin 2.8 gm/dl (3.4-5.0) Lipase 87 U/L (73-393) Bedside Lactic Acid Venous 0.51 mmol/L (0.90-1.70) White Blood Count 3.91 K/uL (4.8-10.8) Red Blood Count 4.39 M/uL (4.2-5.4) Hemoglobin 12.6 g/dL (12.0-16.0) Hematocrit 38.3 % (37-47) Mean Corpuscular Volume 87.2 fL (80-100) Mean Corpuscular Hemoglobin 28.7 pg (25-34) Mean Corpuscular Hemoglobin Concent 32.9 g/dl (32-36) Platelet Count 102 K/uL (130-400) Mean Platelet Volume 9.8 fL (7.4-10.4) Neutrophils (%) (Auto) 81.5 % Lymphocytes (%) (Auto) 12.0 % Monocytes (%) (Auto) 5.4 % Eosinophils (%) (Auto) 0.0 % Basophils (%) (Auto) 0.8 % Neutrophils # (Auto) 3.19 K/uL (1.4-6.5) Lymphocytes # (Auto) 0.47 K/uL (1.2-3.4) Monocytes # (Auto) 0.21 K/uL (0.11-0.59) Eosinophils # (Auto) 0.00 K/uL (0-0.5) Basophils # (Auto) 0.03 K/uL (0-0.2) RDW Standard Deviation 43.7 fL (36.4-46.3) RDW Coefficient of Variation 13.6 % (11.5-14.5) Immature Granulocyte % (Auto) 0.3 % Immature Granulocyte # (Auto) 0.01 K/uL (0.00-0.02) Dohle Bodies OCCASIONAL Platelet Estimate DECREASED Red Blood Cell Morphology Unremarkable Human Chorionic Gonadotropin, Qual NEG (NEG) Monoscreen NEG (NEG) Laboratory results per my review. Medications Administered Medications (Trade) Dose Ordered Sig/Ruthie Route Start Time Stop Time Status Last Admin Dose Admin Sodium Chloride 1,000 ml @ 999 mls/hr Q1H1M STAT IV 04/24/17 14:25 04/24/17 15:25 DC 04/24/17 14:25 999 MLS/HR Promethazine HCl 25 mg/Sodium Chloride 51 ml @ 204 mls/hr NOW STAT IV 04/24/17 14:25 04/24/17 14:39 DC 6/12/17 15:17 204 MLS/HR Morphine Sulfate (MoRPHine SULFATE INJ) 4 mg Q15M PRN IV 04/24/17 14:30 05/08/17 14:29 04/24/17 15:18 4 MG ED Course 1416: The patient was evaluated in room B12B. A complete history and physical examination were performed. 1425: Ordered Promethazine HCl 25 mg/NSS 51 ml @ 204 mls/hr IV, NSS 1,000 ml @ 999 mls/hr IV. 1430: Ordered Morphine Sulfate 4 mg IV. 1618: Upon reevaluation, the patient is resting comfortably. I discussed the results and treatment plan with her. She verbalized agreement of the treatment plan. The patient was discharged home. Medical Decision Differential diagnosis: Etiologies such as migraine headache, meningitis, sinusitis, CO exposure, ICH, SAH, infection, tumor, headache, sinus thrombosis, arterial dissection, as well as others were entertained. Medication Reconciliation: I attest that I have personally reviewed the patient' s current medications list. Blood pressure screening: Patient was found to have normal blood pressure on screening and does not require follow-up. Nursing notes reviewed. Patient's previous electronic medical records reviewed. The patient is a 56-year-old female who presented to the emergency department for an evaluation of headache. The patient had a subjective fever and was seen in our facility yesterday for similar complaint. She had a very extensive workup at that time and was treated with antibiotics for presumed urinary tract infection. She was sent home on an antibiotic as well. The patient returns today with ongoing symptoms of headache. She did not have a headache at this time. She was concerned about the possibility of a tick borne illness. I did review the patient's previous electronic medical records. Today the patient was found have a low white blood cell count as well as thrombocytopenia. I'm unsure if this represents some other underlying borne illness but her Lyme screen from yesterday was negative. She was treated with IV Rocephin in the emergency department. She was also treated with IV pain medicine IV antiemetics and IV fluids. On subsequent reevaluation she was feeling much better. I do not feel the patient has meningitis. She has no meningismus fever or focal neurologic deficit. Given her low platelet count I do not feel comfortable doing a lumbar puncture at this time. She was encouraged to rest and avoid any strenuous activity. She was encouraged to drink plenty clear liquids and call her primary care physician for a follow-up appointment. She was also encouraged to return the emergency Department immediately if symptoms change worsen or the need arises. Impression Primary Impression: Headache Additional Impressions: Thrombocytopenia suspect tick born illness Scribe Attestation The scribe's documentation has been prepared under my direction and personally reviewed by me in its entirety. I confirm that the note above accurately reflects all work, treatment, procedures, and medical decision making performed by me. Departure Information Dispostion Home / Self-Care Prescriptions Doxycycline (Monohydrate) (DOXYCYCLINE MONOHYDRATE) 100 Mg Tab 100 MG PO BID, #42 TABS Prov: Anibal Bearden, DO 04/24/17 Oxycodone Immediate Rel Tab (ROXICODONE IR) 5 Mg Tab 1-2 TAB PO Q4H Y for Severe Pain, #24 TAB Prov: Anibal Bearden, DO 04/24/17 Referrals Alesha Sterling M.D. (PCP) Forms HOME CARE DOCUMENTATION FORM, IMPORTANT VISIT INFORMATION Patient Instructions Headache Pain, [facility] Additional Instructions Call your family to schedule a follow-up appointment. Rest and avoid any strenuous activity. Drink plenty clear liquids. Return to the emergency apartment immediately if symptoms change worsen or the need arises. You may require repeat laboratory studies to evaluate the abnormalities noted on her CBC today. Continue using Motrin and Tylenol as directed for mild pain. Problem Qualifiers
--- NOTE | 2017-04-24 14:57 | DIAGNOSTIC IMAGING REPORT ---
CHEST ONE VIEW PORTABLE HISTORY: Headache. Fever. COMPARISON: Chest 04/23/2017. FINDINGS: Small linear densities within the left lung base favor subsegmental atelectasis. The right lung remains clear. No pleural effusions. No pneumothorax. The heart is normal in size. IMPRESSION: A few small linear densities at the left lung base favor subsegmental atelectasis. Otherwise, no acute process within the chest. Electronically signed by: Yg Arguello M.D. 04/24/2017 2:55 PM Dictated Date/Time: 04/24/2017 2:54 PM
--- NOTE | 2017-04-24 15:16 | DIAGNOSTIC IMAGING REPORT ---
CT HEAD WITHOUT CONTRAST (CT) CLINICAL HISTORY: Headache and fever. COMPARISON STUDY: No previous studies for comparison. TECHNIQUE: Axial CT of the brain is performed from the vertex to the skull base. IV contrast was not administered for this examination. CT DOSE: 537.48 mGy.cm FINDINGS: No intra or extra-axial mass lesions are visualized. There is no CT evidence of acute cortical infarction. There is no evidence of midline shift. There is no acute hemorrhage. No calvarial fractures are visualized. There is no evidence of pathologic ventricular dilatation. There is no evidence of acute sinusitis IMPRESSION: Normal noncontrast head CT for age Electronically signed by: Prudencio Orozco M.D. 04/24/2017 3:15 PM Dictated Date/Time: 04/24/2017 3:14 PM
[2017-04-24 15:46] LABS: BUN/CREATININE RATIO 18.4 (10-20); CALCIUM 8.3 mg/dl (8.5-10.1); CREATININE 0.69 mg/dl (0.60-1.20); POTASSIUM 3.4 mmol/L (3.5-5.1)
[2017-04-24 15:55] LABS: HEMATOCRIT 38.3 % (37-47); MEAN CELL VOLUME 87.2 fL (80-100); MEAN CORPUSCULAR HEMOGLOBIN 28.7 pg (25-34); MEAN CORPUSCULAR HGB CONC 32.9 g/dl (32-36); MEAN PLATELET VOLUME 9.8 fL (7.4-10.4); PLATELET COUNT 102 K/uL (130-400); RED BLOOD COUNT 4.39 M/uL (4.2-5.4); WHITE BLOOD COUNT 3.91 K/uL (4.8-10.8)
[2017-04-24 16:05] LABS: PREG INTERNAL NEGATIVE QC NEG CLEAR BACKGROUND; PREG INTERNAL POSITIVE QC POS CONTROL LINE
[2017-04-24] MEDS ORDERED: CEFTRIAXONE SOD INJ 1 GM ADDVIAL IV STA (16:11)
[2017-04-24 16:19] LABS: BASO % 0.8 %; BASO ABS # 0.03 K/uL (0-0.2); COMPLETE YES; DOHLE BODIES OCCASIONAL; IG% 0.3 %; LYMPH ABS # 0.47 K/uL (1.2-3.4); MONO % 5.4 %; NEUT % 81.5 %; PLT ESTIMATE DECREASED
[2017-04-24] MEDS ORDERED: DOXY100T17 PO (16:31)
[2017-04-24] MEDS ORDERED: OXYC1TAB3 PO (16:31)
[2017-04-24 17:23] LABS: URINE APPEARANCE CLEAR (CLEAR); URINE BILIRUBIN NEG (NEG); URINE COLOR YELLOW; URINE EPITHELIAL CELL AUTO >30 /lpf (0-5); URINE NITRITE NEG (NEG); URINE PH 5.5 (4.5-7.5); URINE SPECIFIC GRAVITY 1.014 (1.000-1.030); UROBILINOGEN NEG (NEG)
[2017-04-24 17:27] LABS: MANUAL MICROSCOPIC REQUIRED? NO; REVIEW REQ? YES
[2017-04-24 19:59] VITALS: BP 109/72; PULSE 78; O2SAT 95
[2017-04-30 00:51] LABS: EHRLICHIA CHAFF IGG AB <1:64 (<1:64); EHRLICHIA CHAFF IGM AB <1:20 (<1:20)
== END 2017-04-24 20:00 | disposition home or self-care (01) ==
LOC: C.EDB 14:07
DX: R51 Headache (principal); D69.6 Thrombocytopenia, unspecified; J45.909 Unspecified asthma, uncomplicated; Z79.899 Other long term (current) drug therapy

== ENCOUNTER 2017-04-27 12:32 | Emergency (ER) | payer BC ==
[~2017-04-27] VITALS: Ht 172.7 cm; Wt 106.0 kg
[~2017-04-27 12:32] MED LIST changes: +DOXY100T17 PO; +OXYC1TAB3 PO
[2017-04-27 12:34] VITALS: TEMP 36.7; Ht 172.7 cm; Wt 106.0 kg
[2017-04-27 12:58] VITALS: O2SAT 96
[2017-04-27] MEDS ORDERED: OXYC1TAB3 PO (13:08)
[2017-04-27] MEDS ORDERED: DOXY100C76 PO (13:08)
[2017-04-27] MEDS ORDERED: ONDA4TAB46 PO (13:08)
[2017-04-27] MEDS ORDERED: SODIUM CHLORIDE 0.9% 1000ML 1,000 ML IV STA ×2 (13:30→16:46)
[2017-04-27 13:41] LABS: HEMATOCRIT 38.3 % (37-47); MEAN CELL VOLUME 86.1 fL (80-100); MEAN CORPUSCULAR HEMOGLOBIN 28.1 pg (25-34); MEAN CORPUSCULAR HGB CONC 32.6 g/dl (32-36); MEAN PLATELET VOLUME 10.1 fL (7.4-10.4); PLATELET COUNT 228 K/uL (130-400); RED BLOOD COUNT 4.45 M/uL (4.2-5.4)
[2017-04-27 13:48] LABS: ALT/SGPT 51 U/L (12-78); AST/SGOT 43 U/L (15-37); BLOOD UREA NITROGEN 10 mg/dl (7-18); BUN/CREATININE RATIO 11.8 (10-20); CALCIUM 8.3 mg/dl (8.5-10.1); CARBON DIOXIDE 28 mmol/L (21-32); CHLORIDE 104 mmol/L (98-107); CREATININE 0.83 mg/dl (0.60-1.20); GLUCOSE 133 mg/dl (70-99); POTASSIUM 3.3 mmol/L (3.5-5.1); SODIUM 140 mmol/L (136-145)
[2017-04-27 13:59] LABS: ALKALINE PHOSPHATASE 219 U/L (45-117); THYROID STIMULATING HORMONE 0.687 uIu/ml (0.300-4.500)
[2017-04-27 14:12] LABS: BASO % 1.4 %; BASO ABS # 0.08 K/uL (0-0.2); COMPLETE YES; EOS % 1.7 %; IG% 0.5 %; LARGE PLATELETS 1+; LYMPH % 48.1 %; LYMPH ABS # 2.84 K/uL (1.2-3.4); MONO % 8.6 %; NEUT % 39.7 %
--- NOTE | 2017-04-27 14:23 | EMERGENCY ROOM VISIT NOTE ---
History First contact with patient: 13:08 Chief Complaint: SYNCOPE (NEAR SYNCOPE) Stated Complaint: NUMBNESS, TINGLING, LIGHTHEADED Nursing Triage Summary: Pt was seen here for twice this week for dehydration, UTI, fever. Pt reports today bilateral arms and legs were numb and she felt like she was going to pass out. Headache sent by PCP for evaluation History of Present Illness The patient is a 56 year old female who presents to the Emergency Room with complaints of 2 episodes of lightheadedness and feeling like she might pass out today. Patient states she had was treated earlier this week for dehydration and UTI. There was also some concern for Lyme disease. She has been improving on doxycycline. However, she continues to have severe daily headaches with photophobia and nausea. She saw her PCP this morning for follow-up, who gave her an IM injection of Toradol for her headache, which the patient states did help improve this. Patient states that she had been sitting down and after standing up began to feel dizzy, nauseated, and had some tingling in her arms and legs. She did not pass out. She denies any chest pain, shortness of breath , palpitations, abdominal pain, back pain, vomiting, bowel or bladder issues. She has not been having any fevers or chills since starting antibiotics. Review of Systems A complete 10 point review of systems was reviewed with the patient with pertinent positives and negatives as per history of present illness. All else were negative. Past Medical/Surgical History Medical Problems: (1) Asthma (2) Migraine Social History Smoking Status: Never Smoker Alcohol Use: occasionally Drug Use: none Marital Status: Housing Status: lives with family Occupation Status: employed Current/Historical Medications Scheduled Doxycycline Monohydrate (Monodox), 100 MG PO BID Fluticasone Prop/Salmeterol (Advair Diskus 250/50 60 Dose), 1 PUFF INH BID Fluticasone Propionate (Nasal) (Flonase Allergy Relief), 2 SPRAYS ANNA DAILY Montelukast Sodium (Singulair), 10 MG PO DAILY Perphenazine-Amitriptyline (Perphenazine/Amitriptylin), 1 TAB PO QPM Sumatriptan Succinate (Imitrex), 100 MG PO PRN Trazodone Hcl (Trazodone), 50 MG PO QPM Scheduled PRN Albuterol Sulfate (Proair Respiclick), 1 PUFF INH DAILY PRN for SOB/Wheezing Ondansetron Hcl (Zofran), 4 MG PO QID PRN for Nausea Oxycodone Ir (Roxicodone Ir), 10 MG PO QID PRN for Pain Allergies Coded Allergies: Hydromorphone (Verified Allergy, Intermediate, Nausea, vomiting, 04/27/17) Sulfa Drugs (Unverified Allergy, Unknown, HIVES, 04/27/17) Physical Exam Vital Signs Date Time Temp Pulse Resp B/P (MAP) Pulse Ox O2 Delivery O2 Flow Rate FiO2 04/27/17 18:11 76 16 122/84 97 Room Air 04/27/17 16:32 77 91 04/27/17 16:02 78 93 04/27/17 16:01 115/83 04/27/17 15:32 81 95 04/27/17 15:30 78 20 131/56 04/27/17 15:30 131/56 04/27/17 15:01 120/110 04/27/17 14:32 76 22 91 04/27/17 14:02 80 22 94 04/27/17 14:01 120/65 04/27/17 13:54 82 20 113/67 94 Room Air 04/27/17 13:50 113/67 04/27/17 13:32 82 18 95 04/27/17 13:06 84 04/27/17 12:58 96 Room Air 04/27/17 12:55 81 20 124/64 96 Room Air 92 116/72 96 116/72 04/27/17 12:54 116/72 04/27/17 12:34 36.7 87 18 105/61 93 Room Air Physical Exam CONSTITUTIONAL: No acute distress. Nontoxic-appearing. Mildly dehydrated. Well appearing and well nourished. Alert and oriented X 4 with normal affect. HEENT: Normocephalic, atraumatic. Pupils equal, round and reactive to light, EOMI. TMs normal. Pharynx normal. Dry mucous membranes . NECK: Supple, full active range of motion without discomfort. No nuchal rigidity. No cervical adenopathy. RESPIRATORY: Clear to auscultation bilaterally with no wheezing, crackles, rhonchi or stridor. Equal expansion bilaterally. CARDIOVASCULAR: Regular rate and rhythm with no murmurs, rubs or gallops. Normal peripheral perfusion. No edema. GASTROINTESTINAL: Soft, nontender, nondistended. Bowel sounds present in all quadrants. MUSCULOSKELETAL: Full range of motion of all joints without discomfort. INTEGUMENTARY: No rash or other significant dermatologic conditions noted. NEUROLOGIC: Cranial nerves II-XII grossly intact. No focal neurologic deficits noted. Normal strength, normal sensation, normal gait. Negative Romberg. Medical Decision & Procedures Laboratory Results 04/27/17 13:00 Red Blood Count 4.45, Mean Corpuscular Volume 86.1, Mean Corpuscular Hemoglobin 28.1, Mean Corpuscular Hemoglobin Concent 32.6, Mean Platelet Volume 10.1, Neutrophils (%) (Auto) 39.7, Lymphocytes (%) (Auto) 48.1, Monocytes (%) (Auto) 8.6, Eosinophils (%) (Auto) 1.7, Basophils (%) (Auto) 1.4, Neutrophils # (Auto) 2.34, Lymphocytes # (Auto) 2.84, Monocytes # (Auto) 0.51, Eosinophils # (Auto) 0.10, Basophils # (Auto) 0.08 04/27/17 13:00 Test 04/27/17 12:55 04/27/17 13:00 04/27/17 13:52 Urine Color YELLOW Urine Appearance CLEAR (CLEAR) Urine pH 7.0 (4.5-7.5) Urine Specific [place] 1.007 (1.000-1.030) Urine Protein NEG (NEG) Urine Glucose (UA) NEG (NEG) Urine Ketones NEG (NEG) Urine Occult Blood 2+ (NEG) Urine Nitrite NEG (NEG) Urine Bilirubin NEG (NEG) Urine Urobilinogen NEG (NEG) Urine Leukocyte Esterase NEG (NEG) Urine WBC (Auto) 1-5 /hpf (0-5) Urine RBC (Auto) 5-10 /hpf (0-4) Urine Hyaline Casts (Auto) 0 /lpf (0-5) Urine Epithelial Cells (Auto) 10-20 /lpf (0-5) Urine Bacteria (Auto) NEG (NEG) White Blood Count 5.90 K/uL (4.8-10.8) Red Blood Count 4.45 M/uL (4.2-5.4) Hemoglobin 12.5 g/dL (12.0-16.0) Hematocrit 38.3 % (37-47) Mean Corpuscular Volume 86.1 fL (80-100) Mean Corpuscular Hemoglobin 28.1 pg (25-34) Mean Corpuscular Hemoglobin Concent 32.6 g/dl (32-36) Platelet Count 228 K/uL (130-400) Mean Platelet Volume 10.1 fL (7.4-10.4) Neutrophils (%) (Auto) 39.7 % Lymphocytes (%) (Auto) 48.1 % Monocytes (%) (Auto) 8.6 % Eosinophils (%) (Auto) 1.7 % Basophils (%) (Auto) 1.4 % Neutrophils # (Auto) 2.34 K/uL (1.4-6.5) Lymphocytes # (Auto) 2.84 K/uL (1.2-3.4) Monocytes # (Auto) 0.51 K/uL (0.11-0.59) Eosinophils # (Auto) 0.10 K/uL (0-0.5) Basophils # (Auto) 0.08 K/uL (0-0.2) RDW Standard Deviation 42.9 fL (36.4-46.3) RDW Coefficient of Variation 13.5 % (11.5-14.5) Immature Granulocyte % (Auto) 0.5 % Immature Granulocyte # (Auto) 0.03 K/uL (0.00-0.02) Large Platelets 1+ Anion Gap 8.0 mmol/L (3-11) Est Creatinine Clear Calc Drug Dose 96.5 ml/min Estimated GFR () 91.4 Estimated GFR (Non- 78.8 BUN/Creatinine Ratio 11.8 (10-20) Calcium Level 8.3 mg/dl (8.5-10.1) Magnesium Level 2.0 mg/dl (1.8-2.4) Total Bilirubin 0.4 mg/dl (0.2-1) Direct Bilirubin 0.1 mg/dl (0-0.2) Aspartate Amino Transf (AST/SGOT) 43 U/L (15-37) Alanine Aminotransferase (ALT/SGPT) 51 U/L (12-78) Alkaline Phosphatase 219 U/L (45-117) Troponin I < 0.015 ng/ml (0-0.045) Total Protein 6.9 gm/dl (6.4-8.2) Albumin 3.0 gm/dl (3.4-5.0) Thyroid Stimulating Hormone (TSH) 0.687 uIu/ml (0.300-4.500) Bedside Glucose 135 mg/dl (70-90) Medications Administered Medications (Trade) Dose Ordered Sig/Ruthie Route Start Time Stop Time Status Last Admin Dose Admin Sodium Chloride 1,000 ml @ 999 mls/hr Q1H1M STAT IV 04/27/17 13:30 04/27/17 14:30 DC 04/27/17 13:53 999 MLS/HR Prochlorperazine Edisylate (Compazine Inj) 10 mg NOW STAT IV 04/27/17 16:46 04/27/17 16:47 DC 04/27/17 17:00 10 MG Sodium Chloride 1,000 ml @ 999 mls/hr Q1H1M STAT IV 04/27/17 16:46 04/27/17 17:46 DC 04/27/17 17:00 999 MLS/HR Dexamethasone Sodium Phosphate (Decadron Inj) 10 mg NOW ONCE IV 04/27/17 17:00 04/27/17 17:01 DC 04/27/17 17:00 10 MG ECG Indication: syncope (pre-syncope) Rate (beats per minute): 82 Rhythm: normal sinus Findings: no acute ischemic change, left axis deviation, no ectopy, other ( incomplete RBBB) Change: no significant change (04/23/2017, rate no longer tachycardic, otherwise unchanged) Medical Decision CC: Patient presenting with complaint of dizziness with near syncope Interpretation of Labs: no leukocytosis, no anemia, mild hypokalemia, no other significant electrolyte abnormalities, normal renal function, normal liver function, and no obvious UTI. Negative troponin. Differential Diagnosis: Includes, but not limited to prostatic hypotension, vasovagal, presyncope/syncope, migraine headache, tension headache, dehydration , electrolyte abnormality, anemia, ACS, dysrhythmia Medication Reconciliation: I attest that I have personally reviewed the patient' s current medication list. Vital signs review: I reviewed the patient's vital signs and interpret them as follows: T: Afebrile; BP: normotensive; HR: WNL; RR: WNL; Pulse Ox: WNL on RA. Blood pressure screening: The patient was found to have normal blood pressure on screening and does not require follow-up for repeat blood pressure check. Summary: Patient was evaluated at bedside, history of physical exam performed. Patient is alert and oriented, no acute distress, but does seem to be uncomfortable from her headache and some photophobia. Neuro exam is normal with no focal deficits. Syncope workup conducted including labs, urialysis, EKG. Orthostatic vital signs done which are negative and patient did not have any dizziness with position changes. Review of previous workup, including negative head CT and negative chest x-ray. Patient's labs are unremarkable as reviewed above. EKG unremarkable and unchanged from previous. I suspect patient's symptoms may be secondary to her ongoing headache, which seems migrainous in nature. Patient treated with IV fluid bolus 2, Compazine, Decadron. Patient discussed with Dr. Serna, who agrees with my assessment and plan. Patient reassessed multiple times throughout ED stay, her headache is greatly improved after treatment and she denies any recurrent issues with dizziness or lightheadedness. Patient was ambulated about the nurse's station without any dizziness or difficulties. Patient was instructed to follow closely with her PCP, as well as strict return precautions. She verbalized understanding. Patient was discharged home in stable condition ambulatory. Impression Primary Impression: Light-headedness Additional Impressions: Hypokalemia Migraine headache Departure Information Dispostion Home / Self-Care Condition GOOD Referrals Alesha Sterling M.D. (PCP) Patient Instructions ED Diet High Potassium, ED Headache Migraine, ED Near Syncope [place], [facility] Additional Instructions Rest today in a quiet, peaceful, dark environment and get a full 8-10 hrs of sleep tonight. Avoid loud noises, smoke/smoking, alcohol, bright lights, stress, or physical exertion today to minimize the chance the headache may return. Continue current medications as prescribed. Ibuprofen(Motrin, Advil) may be used for headache. Use 600mg every 6-8 hours as needed. Take with food. Avoid using more than 2400mg in a 24 hour period. Do not use 2400mg per day for more than three consecutive days without physician direction. Prolonged inappropriate use can lead to stomach upset or ulcers. (AND/OR) Acetaminophen(Tylenol) may be used for headache. Use 1000mg every 8 hours as needed. Avoid using more than 3000mg in a 24 hour period. You should take either Tylenol or Ibuprofen at the first sign of a headache to help prevent it from worsening. Drink plenty of fluids to stay well hydrated. Add foods to increase the amount of potassium in your diet. Return to the ER for passing out, severe chest pain, shortness of breath, palpitations, worsening headache, vision problems, neck stiffness/pain, fevers, vomiting, worsening of your condition, or as needed. Follow up with your primary physician in 2-3 days for a recheck of your current condition. Problem Qualifiers Additional Impressions: Migraine headache Migraine type: unspecified Status migrainosus presence: without status migrainosus Intractability: not intractable Qualified Codes: G43.909 - Migraine, unspecified, not intractable, without status migrainosus
[2017-04-27 14:31] LABS: URINE APPEARANCE CLEAR (CLEAR); URINE BILIRUBIN NEG (NEG); URINE COLOR YELLOW; URINE NITRITE NEG (NEG); URINE SPECIFIC GRAVITY 1.007 (1.000-1.030); UROBILINOGEN NEG (NEG)
[2017-04-27 14:32] LABS: MANUAL MICROSCOPIC REQUIRED? NO; REVIEW REQ? NO
[2017-04-27] MEDS ORDERED: PROCHLORPERAZINE 5 MG/ML 2 ML VIAL IV STA (16:46)
[2017-04-27] MEDS ORDERED: DEXAMETHASONE SOD INJ 10 MG/ML VIAL IV ONE (17:00)
[2017-04-27 18:11] VITALS: BP 122/84; PULSE 76; O2SAT 97
== END 2017-04-27 18:26 | disposition home or self-care (01) ==
LOC: C.EDB 12:32
DX: R42 Dizziness and giddiness (principal); E87.6 Hypokalemia; G43.909 Migraine, unspecified, not intractable, without status migrainosus; J45.909 Unspecified asthma, uncomplicated; I45.10 Unspecified right bundle-branch block

== ENCOUNTER 2018-03-07 09:40 | Emergency (ER) | payer BC, OTHER ==
[~2018-03-07] VITALS: Ht 172.7 cm; Wt 104.5 kg
[~2018-03-07 09:40] MED LIST changes: -CPR/500 PO; +DOXY100C76 PO; -DOXY100T17 PO; -OXYC1CAP5 PO
[2018-03-07 09:45] VITALS: TEMP 36.8; Ht 172.7 cm; Wt 104.5 kg
[2018-03-07] MEDS ORDERED: IBUPROFEN 600 MG TAB PO STA (10:14)
[2018-03-07] MEDS ORDERED: ACETAMINOPHEN 500 MG TAB PO STA (10:14)
[2018-03-07] MEDS ORDERED: LIDODERM (LIDOCAINE) PATCH 5% TD STA (10:14)
[2018-03-07] MEDS ORDERED: LDDP5 TD (10:17)
[2018-03-07] MEDS ORDERED: IBUP-1451 PO (10:17)
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
[2018-03-07 11:02] VITALS: BP 121/75; PULSE 79; O2SAT 99
== END 2018-03-07 11:02 | disposition home or self-care (01) ==
LOC: C.EDB 09:42
DX: M54.2 Cervicalgia (principal); R07.9 Chest pain, unspecified; M54.5 Low back pain; R51 Headache; V43.52XA Car driver injured in collision with other type car in traffic accident, initial encounter; Y93.89 Activity, other specified; Y99.8 Other external cause status; J45.909 Unspecified asthma, uncomplicated; Z88.2 Allergy status to sulfonamides; Z88.5 Allergy status to narcotic agent

== ENCOUNTER → 2018-07-09 | Outpatient (CLI) | payer BC ==
[~2018-07-09] MED LIST changes: +LDDP5 TD; +OXYC-90 PO; -OXYC1TAB3 PO
== END | disposition home or self-care (01) ==
LOC: C.PATHSPEC 14:05
PROVIDERS: ATTEND Dentist Endodontics
DX: K04.90 Unspecified diseases of pulp and periapical tissues (principal)